=== PATIENT | female | born 1975 | race Caucasian/White ===

== ENCOUNTER → 2021-01-30 | Outpatient (REF) | payer BC ==
[2021-01-30 18:46] LABS: CREATININE, URINE 22.9 MG/DL; MALB URINE SIEMENS < 5.0 MG/L; MAU/CREAT RATIO 21.8 MCG/MG (0.0-30.0)
== END ==
LOC: M LAB REF 17:08
PROVIDERS: ATTEND Nurse Practitioner Family
DX: E11.65 Type 2 diabetes mellitus with hyperglycemia (principal)

== ENCOUNTER → 2022-04-29 | Outpatient (REF) | payer OTHER, BC ==
[2022-04-29 21:11] LABS: CREATININE, URINE 47.1 MG/DL; MALB URINE SIEMENS < 5.0 MG/L; MAU/CREAT RATIO 10.6 MCG/MG (0.0-30.0)
== END ==
LOC: M LAB REF 16:51
PROVIDERS: ATTEND Nurse Practitioner Family
DX: E11.65 Type 2 diabetes mellitus with hyperglycemia (principal)

== ENCOUNTER 2024-10-06 06:13 | Day surgery (SDC) | payer OTHER ==
[~2024-10-06] VITALS: Ht 167.6 cm; Wt 110.0 kg
[~2024-10-06 06:13] MED LIST: ALBU8.5H INH; CETI10TA4 PO; FAMO20TA5 PO; FLUT10.6 INH; LEXA1TAB2 PO; METF10004 PO; ROSU20TA86 PO; THERTAB52 PO; TRUL0.5I SC
[2024-10-06] MEDS ORDERED: LR 1,000 ML IV SCH (06:20)
[2024-10-06] MEDS ORDERED: LIDOCAINE 5% OINT 30GM TUBE As Ordered ONE (07:11)
[2024-10-06] MEDS ORDERED: dexmedeTOMIDine (4MCG/ML)200MCG/50ML BTL (PRECEDEX) As Ordered ONE (07:18)
[2024-10-06] MEDS ORDERED: propofoL 200 MG/20 ML VIAL As Ordered ONE (07:20)
[2024-10-06] MEDS ORDERED: SUGAMMADEX SODIUM 500 MG/5 ML VIAL (BRIDION) As Ordered ONE (07:22)
[2024-10-06] MEDS ORDERED: LIDOCAINE 2% 100MG/5ML SDV (FOR ANES.) As Ordered ONE (07:22)
[2024-10-06] MEDS ORDERED: ONDANSETRON 4MG 2ML VIAL As Ordered ONE (07:22)
[2024-10-06] MEDS ORDERED: ROCURONIUM BROMIDE 50MG/5ML VIAL As Ordered ONE (07:22)
[2024-10-06] MEDS ORDERED: fentaNYL 100 MCG/2 ML INJECTION As Ordered ONE (07:25)
[2024-10-06] MEDS ORDERED: MIDAZOLAM INJ 2MG/2ML VIAL As Ordered ONE (07:25)
[2024-10-06] MEDS: AMPICILLIN SOD/SULBACTAM SOD 3 GM in SODIUM CHLORIDE 0.9% 100ML ADD 100 ML IV ONE (07:34)
[2024-10-06] MEDS: OXYMETAZOLINE 0.05% NASAL SPRAY (AFRIN) As Ordered ONE (07:45)
[2024-10-06] MEDS ORDERED: LABETALOL 100MG/20ML VIAL As Ordered ONE (07:48)
[2024-10-06] MEDS ORDERED: HYDROmorphone HCL 2MG/ML 1ML VIAL As Ordered ONE (07:52)
[2024-10-06] MEDS: LIDOCAINE 2% W/ EPINEPHRINE 1.7 ML DENTAL INJ As Ordered ONE (08:12)
[2024-10-06] MEDS: CHLORHEXIDINE GLUCONATE 0.12 % 15ML UDC (PERIDEX ORAL RINSE) As Ordered ONE (08:12)
[2024-10-06] MEDS ORDERED: fentaNYL 100 MCG/2 ML INJECTION IV PRN (08:30)
[2024-10-06] MEDS ORDERED: oxyCODONE 5MG TAB PO PRN (08:30)
[2024-10-06] MEDS ORDERED: ONDANSETRON 4MG 2ML VIAL IV PRN (08:30)
[2024-10-06] MEDS: BUPivacaine LIPOSOME/PF 266MG 20ML VIAL (13.3MG/ML)(EXPAREL) As Ordered ONE (08:45)
[2024-10-06] MEDS: INSULIN LISPRO (NovoLOG) PER UNIT SC PRN (08:50)
[2024-10-06 10:10] VITALS: BP 136/74; TEMP 97.3; O2SAT 96
== END 2024-10-06 10:16 | disposition home or self-care (01) ==
LOC: M SDC 06:13
PROVIDERS: ATTEND Dentist
DX: K02.9 Dental caries, unspecified (principal); E11.9 Type 2 diabetes mellitus without complications; Z79.899 Other long term (current) drug therapy; Z87.891 Personal history of nicotine dependence; Z88.8 Allergy status to other drugs, medicaments and biological substances
CPT/HCPCS: 81025; 88300; D7140; D7210; D7310; J0295; J0666; J1100; J1171; J1920; J2250; J2405; J3010